=== PATIENT | female | born 1955 | race American Indian/Alaskan Native ===

== ENCOUNTER 2018-07-04 19:40 | Emergency (ER) | payer OTHER ==
[2018-07-04 20:17] VITALS: BP 183/91
[2018-07-04] MEDS ORDERED: ZOFRAN ODT PO ONE (20:22)
[2018-07-04] MEDS ORDERED: NORCO 5/325 PO ONE (20:22)
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
== END 2018-07-05 01:06 | disposition home or self-care (01) ==
LOC: ED 19:40
DX: S16.1XXA Strain of muscle, fascia and tendon at neck level, initial encounter (principal); S39.012A Strain of muscle, fascia and tendon of lower back, initial encounter; S70.01XA Contusion of right hip, initial encounter; S09.90XA Unspecified injury of head, initial encounter; I10 Essential (primary) hypertension; F17.200 Nicotine dependence, unspecified, uncomplicated; V89.2XXA Person injured in unspecified motor-vehicle accident, traffic, initial encounter; Y93.89 Activity, other specified; Y92.488 Other paved roadways as the place of occurrence of the external cause; Y99.8 Other external cause status
CPT/HCPCS: 70450; 72100; 72125; 99284; Q0162

== ENCOUNTER 2019-02-16 12:04 | Emergency (ER) | payer OTHER ==
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
[2019-02-16 13:26] LABS: Bacteria,Urine 1+ /HPF (Negative); Bilirubin,Urine NEG (Negative); Blood,Urine NEG (Negative); Color,Urine Yellow (Yellow); Protein,Urine <15 mg/dL mg/dL (Negative); Urobilinogen,Urine < 2.0 mg/dL (<2.0)
[2019-02-16] MEDS ORDERED: IBUPROFEN PO ONE (14:42)
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
[2019-02-16 15:22] VITALS: BP 157/84
== END 2019-02-16 15:11 | disposition home or self-care (01) ==
LOC: ED 12:04
DX: S39.012A Strain of muscle, fascia and tendon of lower back, initial encounter (principal); I10 Essential (primary) hypertension; F17.200 Nicotine dependence, unspecified, uncomplicated; Z98.890 Other specified postprocedural states; Z79.899 Other long term (current) drug therapy; V49.49XA Driver injured in collision with other motor vehicles in traffic accident, initial encounter; Y93.89 Activity, other specified; Y92.410 Unspecified street and highway as the place of occurrence of the external cause; Y99.8 Other external cause status
CPT/HCPCS: 72100; 81001

== ENCOUNTER 2021-04-03 15:25 | Emergency (ER) | payer OTHER ==
[2021-04-03 15:31] VITALS: BP 181/107
[2021-04-03 16:11] LABS: Basophils % (Auto) 0.5 % (0.0-1.8); Eosinophils # (Auto) 0.1 K/mm3 (0.0-0.4); Eosinophils % (Auto) 1.3 % (0.0-4.3); Hematocrit 46.1 % (30.3-42.9); Hemoglobin 15.2 gm/dl (10.1-14.3); Lymphocytes # (Auto) 1.2 K/mm3 (1.2-5.4); Lymphocytes % (Auto) 17.5 % (13.4-35.0); Mean Corpuscular HGB Conc 33 % (30-34); Mean Corpuscular Volume 95 fl (79-97); Monocytes # (Auto) 0.8 K/mm3 (0.0-0.8); Monocytes % (Auto) 12.3 % (0.0-7.3); Platelet Count 221 K/mm3 (140-440); Red Blood Count 4.83 M/mm3 (3.65-5.03); Red Cell Distribution Width 14.5 % (13.2-15.2)
--- NOTE | 2021-04-03 16:14 | XRay Report ---
CHEST 2 VIEWS INDICATION / CLINICAL INFORMATION: Chest pain, shortness of breath and fever. COMPARISON: None available. FINDINGS: SUPPORT DEVICES: None. HEART / MEDIASTINUM: The heart size and pulmonary vasculature are normal. There is mild calcification in the aortic arch without aneurysm. LUNGS / PLEURA: No significant pulmonary or pleural abnormality. No pneumothorax. ADDITIONAL FINDINGS: No significant additional findings. IMPRESSION: No acute findings. Signer Name: Driss Bui MD Signed: 04/03/2021 4:09 PM Workstation Name: [id number]
[2021-04-03 16:37] LABS: Alanine Aminotransferase 19 units/L (7-56); Albumin 3.9 g/dL (3.9-5); Blood Urea Nitrogen 9 mg/dL (7-17); Calcium 9.3 mg/dL (8.4-10.2); Hemolysis Index 15
[2021-04-03] MEDS ORDERED: ACETAMINOPHEN 500 MG TAB PO ONE (16:37)
[2021-04-03] MEDS ORDERED: METOCLOPRAMIDE 10 MG TAB PO ONE (16:37)
--- NOTE | 2021-04-03 16:39 | Emergency Department Report ---
ED General Adult HPI - General Chief complaint: Chest Pain Stated complaint: Chest tightness, cough, headache and body PUI?: Yes Time Seen by Provider: 04/03/21 16:22 Source: patient, RN notes reviewed Mode of arrival: Ambulatory Limitations: No Limitations - History of Present Illness Initial comments: The patient was evaluated in the emergency department for symptoms described in the history of present illness. He/she was evaluated in the context of the global COVID-19 pandemic, which necessitated consideration that the patient might be at risk for infection with the virus that causes COVID-19. Institutional protocols and algorithms that pertain to the evaluation of patients at risk for COVID-19 are in a state of rapid change based on information released by regulatory bodies including the CDC and federal and state organizations. These policies and algorithms were followed during the patient's care in the emergency department. Please note that these policies, procedures and recommendations changed on a rapid basis. During the entire history and physical examination, complete personal protective equipment. The patient is a 66-year-old female. She is not COVID-19 vaccinated. She presents with 2 days of cough, malaise, fatigue, chest tightness. No vomiting, diaphoresis or exertional shortness of breath. Possible diarrhea. Positive body aches. No urinary symptoms. Has not attempted any [id number] remedies. -: Gradual, days(s) Location: head, chest, back, left, right, upper extremity, lower extremity Quality: aching Consistency: constant Improves with: rest Worsens with: movement - Related Data Previous Rx's Medication Instructions Recorded Last Taken Type Ibuprofen [Motrin] 600 mg PO Q8H PRN #20 tablet 02/16/19 Unknown Rx Acetaminophen [Non-Aspirin Extra 650 mg PO Q6HR PRN #30 tablet 04/03/21 Unknown Rx Strength] Ibuprofen [Motrin] 600 mg PO Q8H PRN #30 tablet 04/03/21 Unknown Rx Ondansetron [Zofran Odt] 4 mg PO Q8HR PRN #20 tab.rapdis 04/03/21 Unknown Rx Allergies Allergy/AdvReac Type Severity Reaction Status Date / Time Penicillins Allergy Hives Verified 04/03/21 15:28 Asprin Allergy Unknown Uncoded 04/03/21 18:33 ED Review of Systems ROS: Stated complaint: CHEST PAIN FEVER 101 BODYACHE Other details as noted in HPI Constitutional: fever, other (Denies loss of taste and smell) Eyes: denies: eye discharge Respiratory: cough Cardiovascular: chest pain Gastrointestinal: diarrhea. denies: abdominal pain Genitourinary: denies: dysuria Musculoskeletal: back pain, arthralgia, myalgia Neurological: headache. denies: weakness ED Past Medical Hx - Past Medical History Hx Hypertension: Yes - Surgical History Additional Surgical History: Ovarian surgery in 1978 - Social History Smoking Status: Current Every Day Smoker Substance Use Type: Alcohol, Prescribed - Medications Home Medications: Home Medications Medication Instructions Recorded Confirmed Last Taken Type Ibuprofen [Motrin] 600 mg PO Q8H PRN #20 tablet 02/16/19 Unknown Rx Acetaminophen [Non-Aspirin Extra 650 mg PO Q6HR PRN #30 tablet 04/03/21 Unknown Rx Strength] Ibuprofen [Motrin] 600 mg PO Q8H PRN #30 tablet 04/03/21 Unknown Rx Ondansetron [Zofran Odt] 4 mg PO Q8HR PRN #20 tab.rapdis 04/03/21 Unknown Rx ED Physical Exam - General Limitations: No Limitations General appearance: alert, in no apparent distress - Head Head exam: Present: atraumatic, normocephalic - Eye Eye exam: Present: normal appearance, EOMI. Absent: nystagmus - ENT ENT exam: Present: normal exam, normal orophraynx, mucous membranes moist, normal external ear exam - Neck Neck exam: Present: normal inspection, full ROM. Absent: tenderness, menin gismus - Respiratory Respiratory exam: Present: other (Pulmonary auscultation not performed secondary to lack of disposable stethoscope). Absent: respiratory distress, stridor - Cardiovascular Cardiovascular Exam: Present: normal rhythm, tachycardia (Noted on EKG) - GI/Abdominal GI/Abdominal exam: Present: soft. Absent: distended, tenderness, guarding, rebound, rigid, pulsatile mass - Extremities Exam Extremities exam: Present: normal inspection, full ROM, other (2+ pulses noted in the bilateral upper and lower extremities. There is no palpable cord. negative Homans sign. Muscular compartments are soft. The pelvis is stable.). Absent: pedal edema, calf tenderness - Back Exam Back exam: Present: normal inspection. Absent: tenderness, CVA tenderness (R), CVA tenderness (L), paraspinal tenderness, vertebral tenderness - Neurological Exam Neurological exam: Present: alert, oriented X3, normal gait, other (No facial droop. Tongue midline. Extraocular movements intact bilaterally. Facial sensation intact to light touch in V1, V2, V3 distribution bilaterally. 5 and a 5 strength in 4 extremities. Sensation intact to light touch in 4 extremiti es.). Absent: motor sensory deficit - Psychiatric Psychiatric exam: Present: normal affect, normal mood - Skin Skin exam: Present: warm, dry, intact, normal color. Absent: rash ED Course Vital Signs 04/03/21 15:30 Temperature 100.4 F H Pulse Rate 113 H Respiratory 18 Rate Blood Pressure 181/107 O2 Sat by Pulse 100 Oximetry - Reevaluation(s) Reevaluation #1: 04/03/21 19:32 Repeat heart rate after medication 97 bpm ED Medical Decision Making - Lab Data Result diagrams: 04/03/21 15:50 04/03/21 15:50 Vital Signs 04/03/21 15:30 Temperature 100.4 F H Pulse Rate 113 H Respiratory 18 Rate Blood Pressure 181/107 O2 Sat by Pulse 100 Oximetry Lab Results 04/03/21 04/03/21 04/03/21 Range/Units 15:50 15:50 15:50 WBC 6.6 (4.5-11.0) K/mm3 RBC 4.83 (3.65-5.03) M/mm3 Hgb 15.2 H (10.1-14.3) gm/dl Hct 46.1 H (30.3-42.9) % MCV 95 (79-97) fl MCH 31 (28-32) pg MCHC 33 (30-34) % RDW 14.5 (13.2-15.2) % Plt Count 221 (140-440) K/mm3 Lymph % (Auto) 17.5 (13.4-35.0) % Lucas % (Auto) 12.3 H (0.0-7.3) % Eos % (Auto) 1.3 (0.0-4.3) % Baso % (Auto) 0.5 (0.0-1.8) % Lymph # (Auto) 1.2 (1.2-5.4) K/mm3 Lucas # (Auto) 0.8 (0.0-0.8) K/mm3 Eos # (Auto) 0.1 (0.0-0.4) K/mm3 Baso # (Auto) 0.0 (0.0-0.1) K/mm3 Seg Neutrophils % 68.4 (40.0-70.0) % Seg Neutrophils # 4.5 (1.8-7.7) K/mm3 Sodium 141 (137-145) mmol/L Potassium 4.0 (3.6-5.0) mmol/L Chloride 104.8 (98-107) mmol/L Carbon Dioxide 20 L (22-30) mmol/L Anion Gap 20 mmol/L BUN 9 (7-17) mg/dL Creatinine 0.7 (0.6-1.2) mg/dL Estimated GFR > 60 ml/min BUN/Creatinine Ratio 13 % Glucose 100 (65-100) mg/dL Lactic Acid 1.00 (0.7-2.0) mmol/L Calcium 9.3 (8.4-10.2) mg/dL Total Bilirubin 0.40 (0.1-1.2) mg/dL AST 28 (5-40) units/L ALT 19 (7-56) units/L Alkaline Phosphatase 101 (35-129) units/L Troponin T < 0.010 (0.00-0.029) ng/mL Total Protein 7.9 (6.3-8.2) g/dL Albumin 3.9 (3.9-5) g/dL Albumin/Globulin Ratio 1.0 % - EKG Data -: EKG Interpreted by Tn EKG shows normal: sinus rhythm Rate: tachycardia - EKG Data When compared to previous EKG there are: previous EKG unavailable 04/03/21 19:29 EKG is interpreted at 15: 35 Sinus rhythm, tachycardia, rate 107 bpm. Left axis deviation. Left anterior fascicular block. Poor R wave progression. QTc 450 ms. Abnormal EKG. Not a STEMI. There is no prior for comparison. - Radiology Data Radiology results: pending, report reviewed, image reviewed CHEST 2 VIEWS INDICATION / CLINICAL INFORMATION: Chest pain, shortness of breath and fever. COMPARISON: None available. FINDINGS: SUPPORT DEVICES: None. HEART / MEDIASTINUM: The heart size and pulmonary vasculature are normal. There is mild calcification in the aortic arch without aneurysm. LUNGS / PLEURA: No significant pulmonary or pleural abnormality. No pneumothorax. ADDITIONAL FINDINGS: No significant additional findings. IMPRESSION: No acute findings. Signer Name: Driss Bui MD Signed: 04/03/2021 3:09 PM Workstation Name: [id number] - Medical Decision Making Differential diagnosis, including but not limited to: COVID-19, pneumonia, viral syndrome, perimyocarditis, migraine headache, cluster headache, tension headache, sinusitis Assessment and plan: 66-year-old female, with low-grade fever, and tachycardia, nonspecific constitutional viral syndrome symptoms, who is not COVID-19 vaccinated. She is not encephalopathic, she has a GCS of 15, with no meningeal signs. She denies travel, surgery, immobilization, DVT and pulmonary embolism risk factors. She is low risk by Wells criteria for pulmonary embolism. Laboratory studies were ordered prior to my personal evaluation of the patient. Troponin negative x1 in the context of 2 days of symptoms. Therefore, acute myocardial infarction is ruled out, myocarditis, pericarditis very unlikely. X-ray the chest unremarkable. She felt improved after Tylenol and Motrin. Even if this patient has COVID-19, she is not hypoxic and does not have pulmonary infiltrates, and she is therefore suitable for trial of outpatient management. Patient counseled and encouraged to follow-up with an outpatient primary care doctor at the [facility], and to get COVID-19 vaccination when medically suitable to do so. Elevated blood pressure reviewed and appreciated. Outpatient follow-up; please reference the [employer] clinical policy on asymptomatic hypertension. Critical care attestation.: If time is entered above; I have spent that time in minutes in the direct care of this critically ill patient, excluding procedure time. ED Disposition Clinical Impression: Suspected COVID-19 virus infection, COVID-19 vaccination not done, Elevated blood pressure reading Disposition: 01 HOME / SELF CARE / HOMELESS Is pt being admited?: No Does the pt Need Aspirin: No Condition: Stable Instructions: Preventing Hypertension Additional Instructions: As we discussed, the patient most likely has novel coronavirus/COVID. the symptoms of COVID will typically persist 10 to 14 days. There is no cure at this time for COVID. Please make certain to self isolate and self quarantine, follow-up with an outpatient primary care doctor within the next 3 to 5 days, wash hands with soap and water frequently, thoroughly and often, patient may take the prescribed medications as needed and directed. Advance diet and drink plenty of fluids as tolerated. Avoid interactions with the very elderly, very young, and those with chronic medical conditions. Return to the emergency room right away with new pain, worsening pain, migration of pain, projectile vomiting, change in mental status, confusion, inability to tolerate liquid feeds, new, worsened or different symptoms not present on the initial emergency room evaluation. Please take your blood pressure medication. Long-term complications of hypertension elevated blood pressure include stroke, heart attack, disability, paralysis, permanent loss of quality of life. Referrals: PRIMARY CARE, [Primary Care Provider] - 3-5 Days [facility] [Provider Group] - 3-5 Days Forms: Work/School Release Form(ED) Heart Score - HEART Score History: Slightly suspicious EKG: Non-specific Age: 45-65 Risk factors: 1-2 risk factors Troponin: < normal limit HEART Score: 3 - EKG Read Time Time EKG Completed: 15:35 EKG Read Time: 15:35 - Critical Actions Critical Actions: 0-3 pts:0.9-1.7%risk of adverse cardiac event.Candidate for discharge
[2021-04-03 16:59] LABS: BUN/Creatinine Ratio 13
[2021-04-03] MEDS: IBUPROFEN 600 MG TAB PO ONE (18:33)
--- NOTE | 2021-04-05 19:02 | Electrocardiograph Report ---
[facility] Test Date: 2021-04-03 Test Time: 15:35:11 Pat Name: ENRIQUE BARAJAS Department: Room: Gender: F [employer] Conditioning [employer]ic: CAROL : 1955 Requested By: LUIS MOHAMUD Order Number: [id number] Reading MD: Elier Biggs Measurements Intervals [place] Rate: 107 P: 60 MS: 141 QRS: -15 QRSD: 84 T: 56 QT: 337 QTc: 450 Interpretive Statements Sinus tachycardia Consider anteroseptal infarct No previous ECG available for comparison Electronically Signed On 04-05-2021 19:01:54 EDT by Elier Biggs
== END 2021-04-03 20:00 | disposition home or self-care (01) ==
LOC: ED 15:25
DX: R03.0 Elevated blood-pressure reading, without diagnosis of hypertension (principal); R07.89 Other chest pain; Z20.822 Contact with and (suspected) exposure to COVID-19; R05.9 Cough, unspecified; R51.9 Headache, unspecified; I10 Essential (primary) hypertension; F17.200 Nicotine dependence, unspecified, uncomplicated; Z72.89 Other problems related to lifestyle; Z79.899 Other long term (current) drug therapy
CPT/HCPCS: 36415; 71046; 80053; 82140; 84484; 85025; 93005; 99284